=== PATIENT | male | born 1990 | race Caucasian/White ===

== ENCOUNTER 2023-10-05 11:17 | Inpatient (IN) ==
[2023-10-05] MEDS ORDERED: IOPAMIDOL 100 ML BOTTLE IV ONE (11:18)
[2023-10-05] MEDS: SODIUM CHLORIDE IV ONE (11:50)
[2023-10-05] MEDS: cefTRIAXone 2 GM in DEXTROSE 5% IN WATER 50 ML IV ONE (11:55)
[2023-10-05 12:10] LABS: Basophils # (Auto) 0.03 K/mcL (0.00-0.30); Basophils % (Auto) 0.1 % (0.0-2.0); Eosinophils # (Auto) 0.09 K/mcL (0.00-0.70); Eosinophils % (Auto) 0.4 % (0.0-7.0); Hematocrit 38.8 % (40.1-51.0); Lymphocytes # (Auto) 3.36 K/mcL (1.50-4.80); Lymphocytes % (Auto) 16.6 % (15.5-49.0); Mean Cell Volume 92.6 fL (80.0-100.0); Mean Corpuscular HGB Conc 33.5 g/dL (31.0-36.0); Mean Platelet Volume 8.8 fL (8.8-12.5); Monocytes # (Auto) 2.26 K/mcL (0.10-0.90); Monocytes % (Auto) 11.2 % (1.0-12.0); Neutrophils % (Auto) 71.6 % (38.0-78.0); Platelet Count 391 K/mcL (140-440); RBC 4.19 M/mcL (4.63-6.08); Red Cell Distribution Width 14.3 % (11.5-14.5); WBC 20.2 K/mcL (4.5-11.0)
[2023-10-05 12:34] LABS: ALT/SGPT 11 U/L (<40); AST/SGOT 23 U/L (<40); Albumin 3.7 gm/dL (3.2-5.2); Albumin/Globulin Ratio 1.1 (1.0-2.3); Alkaline Phosphatase 64 U/L (39-117); Bilirubin,Total < 0.2 mg/dL (0.1-1.0); Blood Urea Nitrogen 10 mg/dL (6-20); Calcium 9.4 mg/dL (8.6-10.4); Carbon Dioxide 23 mmol/L (22-30); Chloride 107 mmol/L (96-108); Globulin 3.3 gm/dL (2.2-3.7); Glomerular Filtration Rate 110; Glucose 85 mg/dL (70-105); Potassium 4.2 mmol/L (3.3-5.1); Sodium 140 mmol/L (133-145)
[2023-10-05] MEDS: VANCOMYCIN 1,000 MG in 0.9 % SODIUM CHLORIDE 250 ML IV ONE (13:52)
[2023-10-05 14:48] LABS: Amphetamine Screen,Urine None detected; Barbiturate Screen,Urine None detected; Cannabinoid Screen,Urine None detected; Cocaine Screen,Urine None detected; Opiate Screen,Urine None detected; Oxycodone, Urine Screen None detected; Phencyclidine Screen,Urine None detected
[2023-10-05 15:00] LABS: Appearance,Urine CLEAR (Clear); Bilirubin,Urine Negative (Negative); Color,Urine YELLOW; Culture Indicated,Urine No; Glucose,Urine (UA) Negative (Negative); Ketones,Urine Negative (Negative); Leukocyte Esterase,Urine Negative /uL (Negative); Nitrate,Urine Negative (Negative); Protein,Urine Negative (Negative); Specific Gravity,Urine 1.017 (1.000-1.035); Urine Blood Negative (Negative); Urobilinogen,Urine Negative
[2023-10-05] MEDS ORDERED: DOXYCYCLINE 100 MG in DEXTROSE 5% IN WATER 100 ML IV ONE (18:00)
[2023-10-05] MEDS: LEVOFLOXACIN 750 MG/150 ML BAG IV ONE (18:13)
[2023-10-05] MEDS: LACTATED RINGERS 1,000 ML IV SCH (18:13)
[2023-10-05] MEDS: metroNIDAZOLE 500 MG/100 ML BAG IV SCH (18:13)
[2023-10-05] MEDS: ACETAMINOPHEN 1,000 MG/100 ML BAG IV ONE (19:33)
[2023-10-05] MEDS: KETOROLAC 15 MG/ML VIAL IV ONE (19:33)
[2023-10-05] MEDS: DOXYCYCLINE 100 MG in DEXTROSE 5% IN WATER 100 ML IV SCH (20:09)
[2023-10-05] MEDS ORDERED: MAGNESIUM HYDROXIDE 30 ML ORAL.SUSP PO PRN (20:58)
[2023-10-05] MEDS ORDERED: ONDANSETRON 4 MG/2 ML VIAL IV PRN (20:58)
[2023-10-05] MEDS ORDERED: SENNOSIDES 1 TABLET PO PRN (20:58)
[2023-10-05] MEDS: CHLORHEXIDINE GLUCONATE 15 ML UDC SSP SCH (21:20)
[2023-10-05] MEDS: NICOTINE 14 MG PATCH TOPICAL ONE (21:20)
[2023-10-05] MEDS: 0.9 % SODIUM CHLORIDE 10 ML SYRINGE IV SCH (21:21)
[2023-10-05] MEDS: traMADol 50 MG TABLET PO ONE (23:14)
[2023-10-05] MEDS: MELATONIN 3 MG TABLET PO PRN (23:14)
[2023-10-06] MEDS: MELATONIN 3 MG TABLET PO ONE (00:17)
[2023-10-06] MEDS: traMADol 50 MG TABLET PO ONE (00:17)
[2023-10-06 06:22] LABS: Basophils # (Auto) 0.02 K/mcL (0.00-0.30); Basophils % (Auto) 0.1 % (0.0-2.0); Eosinophils # (Auto) 0.09 K/mcL (0.00-0.70); Eosinophils % (Auto) 0.5 % (0.0-7.0); Hematocrit 36.4 % (40.1-51.0); Lymphocytes # (Auto) 4.18 K/mcL (1.50-4.80); Lymphocytes % (Auto) 22.2 % (15.5-49.0); Mean Cell Volume 93.6 fL (80.0-100.0); Monocytes # (Auto) 1.82 K/mcL (0.10-0.90); Monocytes % (Auto) 9.7 % (1.0-12.0); Neutrophils % (Auto) 67.3 % (38.0-78.0); Platelet Count 373 K/mcL (140-440); RBC 3.89 M/mcL (4.63-6.08); Red Cell Distribution Width 14.4 % (11.5-14.5); WBC 18.9 K/mcL (4.5-11.0)
[2023-10-06 06:46] LABS: ALT/SGPT 28 U/L (<40); AST/SGOT 35 U/L (<40); Albumin 3.4 gm/dL (3.2-5.2); Albumin/Globulin Ratio 1.2 (1.0-2.3); Alkaline Phosphatase 56 U/L (39-117); Bilirubin,Direct < 0.2 mg/dL (0-0.3); Bilirubin,Total < 0.2 mg/dL (0.1-1.0); Blood Urea Nitrogen 7 mg/dL (6-20); Calcium 8.7 mg/dL (8.6-10.4); Carbon Dioxide 21 mmol/L (22-30); Chloride 106 mmol/L (96-108); Globulin 2.8 gm/dL (2.2-3.7); Glomerular Filtration Rate 116; Glucose 80 mg/dL (70-105); Lactate Dehydrogenase 113 U/L (135-225); Phosphorous 2.5 mg/dL (2.5-4.5); Sodium 138 mmol/L (133-145); Triglycerides 88 mg/dL (<150); Uric Acid 3.1 mg/dL (2.5-8.0)
[2023-10-06] MEDS: LEVOFLOXACIN 750 MG/150 ML BAG IV SCH (09:22)
[2023-10-06] MEDS: NICOTINE 14 MG PATCH TOPICAL SCH (09:50)
[2023-10-06] MEDS: ACETAMINOPHEN 325 MG TABLET PO PRN (12:38)
[2023-10-07 06:45] LABS: Basophils # (Auto) 0.05 K/mcL (0.00-0.30); Basophils % (Auto) 0.3 % (0.0-2.0); Eosinophils # (Auto) 0.09 K/mcL (0.00-0.70); Eosinophils % (Auto) 0.6 % (0.0-7.0); Hematocrit 36.7 % (40.1-51.0); Hemoglobin 12.3 g/dL (13.7-17.5); Lymphocytes # (Auto) 4.33 K/mcL (1.50-4.80); Lymphocytes % (Auto) 29.4 % (15.5-49.0); Mean Cell Volume 91.5 fL (80.0-100.0); Mean Corpuscular HGB Conc 33.5 g/dL (31.0-36.0); Mean Platelet Volume 9.1 fL (8.8-12.5); Monocytes # (Auto) 1.66 K/mcL (0.10-0.90); Monocytes % (Auto) 11.3 % (1.0-12.0); Platelet Count 392 K/mcL (140-440); RBC 4.01 M/mcL (4.63-6.08); Red Cell Distribution Width 13.9 % (11.5-14.5); WBC 14.7 K/mcL (4.5-11.0)
[2023-10-07 06:46] LABS: ALT/SGPT 48 U/L (<40); AST/SGOT 47 U/L (<40); Albumin 3.6 gm/dL (3.2-5.2); Albumin/Globulin Ratio 1.2 (1.0-2.3); Alkaline Phosphatase 58 U/L (39-117); Bilirubin,Direct < 0.2 mg/dL (0-0.3); Bilirubin,Total < 0.2 mg/dL (0.1-1.0); Blood Urea Nitrogen 9 mg/dL (6-20); Calcium 9.2 mg/dL (8.6-10.4); Carbon Dioxide 22 mmol/L (22-30); Chloride 104 mmol/L (96-108); Glomerular Filtration Rate 110; Glucose 83 mg/dL (70-105); Lactate Dehydrogenase 124 U/L (135-225); Potassium 3.8 mmol/L (3.3-5.1); Sodium 138 mmol/L (133-145); Triglycerides 85 mg/dL (<150); Uric Acid 4.1 mg/dL (2.5-8.0)
[2023-10-07] MEDS: LEVOFLOXACIN 750 MG TABLET PO SCH (08:55)
[2023-10-07] MEDS: DOXYCYCLINE HYCLATE 100 MG TABLET.ORL PO SCH (08:55)
[2023-10-07] MEDS ORDERED: metroNIDAZOLE 500 MG TABLET PO SCH (14:00)
[2023-10-11 07:08] LABS: Alprazolam, Urine Negative (Cutoff=100); Clonazepam, Urine Negative (Cutoff=100); Flurazepam, Urine Negative (Cutoff=100); Lorazepam, Urine Negative (Cutoff=100); Midazolam, Urine Negative (Cutoff=100); Nordiazepam, Urine Negative (Cutoff=100); Oxazepam, Urine Negative (Cutoff=100); Temazepam, Urine Negative (Cutoff=100); Triazolam, Urine Negative (Cutoff=100)
== END 2023-10-07 09:57 | disposition home or self-care (01) | DRG 158 ==
LOC: ED 11:17 → MEDSUR 20:57
PROVIDERS: ADMIT Student in an Organized Health Care Education/Training Program; ATTEND Student in an Organized Health Care Education/Training Program